=== PATIENT | male | born 1985 | race Caucasian/White ===

== ENCOUNTER 2021-08-05 18:45 | Emergency (ER) | payer OTHER ==
[2021-08-05 19:58] LABS: HEMOGLOBIN 15.7 gm/dl (14.0-17.5); RED BLOOD COUNT 5.26 M/UL (4.20-5.50); WHITE BLOOD COUNT 7.7 K/UL (4.5-11.0)
[2021-08-05 20:26] LABS: BUN/CREATININE RATIO 18 (0-10)
[2021-08-05] MEDS ORDERED: ZOFRAN ODT 4 MG4 MG PO (22:35)
[2021-08-05] MEDS ORDERED: LODINE CAP 300300 MG PO (22:35)
[2021-08-05] MEDS ORDERED: TAMIFLU75 MG PO (22:35)
== END 2021-08-05 23:45 | disposition home or self-care (01) ==
LOC: ER1 18:45 → EDBD 18:45 → ER1 23:45
PROVIDERS: Physician Assistant
DX: J10.1 Influenza due to other identified influenza virus with other respiratory manifestations (principal); F17.210 Nicotine dependence, cigarettes, uncomplicated; Z20.822 Contact with and (suspected) exposure to COVID-19
CPT/HCPCS: 0240U; 71045; 80053; 83605; 85025; 87040; 93005; 99284